=== PATIENT | female | born 2005 | race Two or more races ===

== ENCOUNTER 2024-05-18 00:32 | Emergency (ER) | payer SELFPAY ==
[2024-05-18 00:34] VITALS: BMI 23.6
--- NOTE | 2024-05-18 01:20 | PC.NURSE ---
no answer when called to be vitaled
[2024-05-18 01:41] VITALS: BP 131/81; PULSE 82; RESP 17; TEMP 37.1; O2SAT 98
[2024-05-18] MEDS: ACETAMINOPHEN 325 MG TABLET 650 MG PO (02:08)
[2024-05-18 02:41] LABS: Collection Type, Urine Clean Catch
[2024-05-18 03:34] LABS: Bilirubin,Urine Negative (Negative); Blood,Urine Negative (Negative); Clarity,Urine Clear (Clear/Hazy); Color,Urine Colorless (Lt Yel-Yel); Culture Indicated,Urine Not Indicated; Glucose, Urine Negative (Negative); Ketones,Urine Negative (Negative); Leukocyte Esterase,Urine Negative (Negative); Nitrite,Urine Negative (Negative); PH,Urine 7.5 (5.0-7.0); Protein,Urine Negative (Neg - Trace); RBC,Urine < 1 /hpf (0-3); Specific Gravity,Urine 1.008 (1.001-1.035); Squamous Epithelial Cell,Urine 2 /hpf (0-5); Urobilinogen,Urine Negative mg/dL (0.0-1.0); WBC,Urine < 1 /hpf (0-5)
[2024-05-18 03:37] LABS: HCG Qualitative,Urine Positive
--- NOTE | 2024-05-18 04:01 | EDNOTE_ITS ---
Upper Respiratory Inf. RME/HPI General Chief Complaint: Flu Like Symptoms Stated Complaint: HEADACHE, RUNNY NOSE Time Seen by Provider: 05/18/24 01:49 Arrival date/time: 05/18/24 00:32 RME / HPI RME / HPI Narrative: 19-year-old female who is currently 8 weeks A0 presents for evaluation of headache x 3 days. She endorses rhinorrhea and intermittent cough. Denies fever, chills, weakness. She notes intermittent dysuria. She denies vaginal bleeding, cramping, increased vaginal discharge. Patient is currently waiting to establish OB care. Related Data Allergies Allergy/AdvReac Type Severity Reaction Status Date / Time No Known Allergies Allergy Verified 05/18/24 00:33 Course Orders Category Date Time Status Bedside COVID-19 Antigen Test NOW Care 05/18/24 01:50 Active Bedside Influenza A&B Antigen Test NOW Care 05/18/24 01:50 Completed HCG Qualitative,Urine Stat Lab 05/18/24 02:10 Completed UA, C/S IF [Urinalysis, C/S if Indicated] Stat Lab 05/18/24 02:10 Completed Acetaminophen Tab [Tylenol Tab] Med 05/18/24 01:50 Discontinued 650 mg PO X1 ONE Vital Signs Vital signs: Vital Signs Temperature 98.8 F 05/18/24 01:41 Pulse Rate 82 05/18/24 01:41 Respiratory Rate 17 05/18/24 01:41 Blood Pressure 131/81 H 05/18/24 01:41 Pulse Oximetry (%) 98 05/18/24 01:41 Oxygen Delivery Method Room Air 05/18/24 01:41 Upper Respiratory Infection Medications / Prescriptions Medication administrations:: Medication Administration History Discontinued Medications Acetaminophen (Acetaminophen 325 Mg Tablet) 650 mg PO X1 ONE Stop: 05/18/24 01:51 Last Admin: 05/18/24 02:08 Dose: 650 mg Documented By: MANUEL Discharge Plan Prescriptions/Referrals Referrals: No Primary/Family,Physician [Primary Care Provider] - In 1 week Patient/Caregiver Discharge Instructions Print Language: Romansh
[2024-05-18 04:58] VITALS: BP 128/76; PULSE 80; RESP 18; TEMP 36.8; O2SAT 98
== END 2024-05-18 05:00 | disposition home or self-care (01) ==
PROVIDERS: Physician Assistant; Emergency Provider Emergency Medicine
DX: O99.511 Diseases of the respiratory system complicating pregnancy, first trimester (principal); J06.9 Acute upper respiratory infection, unspecified; Z3A.08 8 weeks gestation of pregnancy
CPT/HCPCS: 81001; 81025; 87400; 87811; 99283; A9270

== ENCOUNTER → 2024-06-04 | Outpatient (CLI) | payer SELFPAY ==
--- NOTE | 2024-06-04 15:30 | XR_ITS ---
Examination: Complete OB ultrasound, less than 14 weeks, transabdominal Date and time of exam: June 03, 2024 1549 hours INDICATIONS: Unknown size and dates, Technique: Obstetrical ultrasound images less than 14 weeks performed via transabdominal imaging Findings: A normal shaped single intrauterine gestation is present in the uterus. CRL 5.9 cm corresponds to 12 weeks 3 days gestational age Cardiac motion 160 bpm Ultrasonographic survey of visible and placental structures unremarkable. Amniotic fluid volume appears appropriate for this estimated gestational age. Right ovary 3.7 cm arterial flow. Left ovary 2.8 cm arterial flow IMPRESSION: Viable intrauterine gestation 12 weeks 3 days.
== END | disposition home or self-care (01) ==
PROVIDERS: Referring Provider Obstetrics & Gynecology; Visit Provider Obstetrics & Gynecology
DX: O09.92 Supervision of high risk pregnancy, unspecified, second trimester (principal); Z3A.12 12 weeks gestation of pregnancy
CPT/HCPCS: 76801

== ENCOUNTER → 2024-06-17 | Outpatient (CLI) | payer SELFPAY ==
--- NOTE | 2024-06-17 16:24 | XR_ITS ---
Examination: Complete OB ultrasound, less than 14 weeks, transabdominal Date and time of exam: June 17, 2024 1642 hrs. Indications: Onset decreased movement today Technique: Obstetrical ultrasound images less than 14 weeks performed via transabdominal imaging Findings: A normal shaped single intrauterine gestation is present in the uterus. CRL 8.5 cm corresponds to 14 weeks 3 days gestational age Cardiac motion 166 BPM Ultrasonographic survey of visible and placental structures unremarkable. Amniotic fluid volume appears appropriate for this estimated gestational age. Right ovary 3.9 cm arterial flow Left ovary obscured by bowel gas Impression: Viable intrauterine gestation 14 weeks 3 days.
== END | disposition home or self-care (01) ==
PROVIDERS: Referring Provider Obstetrics & Gynecology; Visit Provider Obstetrics & Gynecology
DX: O36.8120 Decreased fetal movements, second trimester, not applicable or unspecified (principal); Z3A.14 14 weeks gestation of pregnancy
CPT/HCPCS: 76801

== ENCOUNTER → 2024-08-19 | Outpatient (CLI) | payer MEDICAID, SELFPAY ==
--- NOTE | 2024-08-19 14:47 | XR_ITS ---
EXAMINATION: Ankle, left 3 views . Technique: Ankle AP, oblique, lateral 3 views Date and time of exam: 04/21/2024 1451 hours INDICATIONS: Ankle pain 2 weeks. FINDINGS: Lateral malleolar soft tissue swelling No fracture No foreign body IMPRESSION: No fracture or dislocation
== END | disposition home or self-care (01) ==
LOC: CDIM 14:39
PROVIDERS: PCP Physician Assistant; Referring Provider Physician Assistant; Visit Provider Physician Assistant
DX: M25.579 Pain in unspecified ankle and joints of unspecified foot (principal)
CPT/HCPCS: 73610

== ENCOUNTER 2024-12-04 00:54 | Inpatient (IN) | payer MEDICAID, SELFPAY ==
[2024-12-04] VITALS (189 sets, daily range): BP systolic 95–149; BP diastolic 58–95; PULSE 58–109; RESP 16–99; TEMP 36.8–37.2; O2SAT 83–100; BMI 30.4
[2024-12-04] MEDS: RINGERS LACTATED 1000 ML 1,000 ML 125 ML IV ×3 (03:47→07:57)
[2024-12-04] MEDS: Ampicillin Inj 2,000 MG in SODIUM CHLORIDE 0.9% (POP) 100 ML 200 MG IV (04:16)
[2024-12-04 04:38] LABS: Basophils # (Auto) 0.0 Thou/mm3 (0.0-0.2); Basophils % (Auto) 0 % (0-2.5); Eosinophils # (Auto) 0.1 Thou/mm3 (0.0-0.5); Eosinophils % (Auto) 1 % (0-10); Hematocrit 42.2 % (36.0-46.0); Hemoglobin 14.1 g/dL (12.0-16.0); Immature Granulocytes Auto 0.03 Thou/mm3 (0.00-0.00); Lymphocytes # (Auto) 2.1 Thou/mm3 (1.0-4.8); Lymphocytes % (Auto) 18 % (10-50); Mean Corpuscular HGB Conc 33.4 g/dl (31.0-37.0); Mean Corpuscular Hemoglobin 27.6 pg (25.0-35.0); Mean Corpuscular Volume 83 fL (80-100); Monocytes # (Auto) 0.7 Thou/mm3 (0.0-0.8); Monocytes % (Auto) 6 % (0-12); Neutrophils # (Auto) 8.6 Thou/mm3 (1.8-7.7); Neutrophils % (Auto) 74 % (37-80); Nucleated Red Blood Cell # 0.00 Thou/mm3 (0.00-0.00); Nucleated Red Blood Cell % 0 /100 WBC (0); Platelet Count 224 Thou/mm3 (140-440); RDW Standard Deviation 41.6 fL (36.4-46.3); Red Blood Count 5.10 Miln/mm3 (4.00-5.20); White Blood Count 11.5 Thou/mm3 (3.6-11.0)
[2024-12-04 05:04] LABS: Syphilis Nonreactive (Nonreactive)
[2024-12-04 06:45] LABS: Amphetamine/Metham Scrn,Ur OB Negative (Negative); Benzoylecgonine Screen, Ur OB Negative (Negative); Opiate Screen,Urine OB Negative (Negative); THC Screen,Urine OB Negative (Negative)
--- NOTE | 2024-12-04 06:47 | ESHP_ITS ---
Documentation for date of: 12/04/24 OB Labor/Induct. HPI History of Present Illness Chief complaint: Contractions : 1 Para: 0 Term pregnancies: 0 pregnancies: 0 Living children: 0 History of Abortions: Spontaneous and Elective: 0 History of Vaginal deliveries: 0 History of sections: No History of : No MARTHA: 12/13/24 Gestational Age (weeks): 38 Gestational Age (days): 5 History of present illness: Patient is a 19-year-old 1 para 0 at 38 weeks and 5 days that receives care with Dr. Whitmore at [facility] presented to labor and delivery triage at 1 AM with contractions that started around 11:30 PM. On initial presentation she was noted to be 3 cm dilated patient was ambulated for 2 hours and recheck was 5 cm with 100% effacement and -2 station patient is being admitted in early labor. All her records were reviewed. She is GBS positive, the rest of her labs were within normal limits. The office progress notes/flow sheet is not available for review at this time. History of Present Adequate Care: Yes (per pt report) Labs Labs: Positive: Rubella Titre and Group Beta Strep, Negative: RPR, Hepatitis B and HIV and Unknown: Chlamydia, Gonorrhea, Herpes Type 1 and Herpes Type 2 Review of Systems Review of Systems Systems Reviewed: All systems reviewed, normal except as documented Past Medical History Surgical History SURGICAL: Negative Section Meds Home Medications and Allergies Home Medications ?Medication ?Instructions ?Recorded ?Confirmed ?Type vits no.130-ferrous fum 1 tab PO QDAY 5 12/04/24 History 27 mg iron-folic acid 800 mcg tablet ( Vitamin) Allergies Allergy/AdvReac Type Severity Reaction Status Date / Time No Known Allergies Allergy Verified 12/04/24 01:07 OB Exam Physical Exam Vital signs: Temp Pulse Resp BP Pulse Ox 98.4 F 71 16 105/73 98 12/04/24 01:15 12/04/24 06:38 12/04/24 01:15 12/04/24 06:38 12/04/24 06:43 Constitutional Constitutional: no acute distress Routine HEENT Exam Head: Present normocephalic and atraumatic Eye: Present EOMI and PERRL ENT: Present mucous membranes moist Routine Neck Exam Neck: Present supple and trachea midline Routine Cardiovascular Exam Cardiovascular: Present RRR Routine Abdominal Exam Abdominal: Present soft and normoactive bowel sounds Detailed Labor and Delivery Exam Dilation (cm): 5 Effacement (%): 100 Cervix position: mid station: 0 Presentation: Vertex Baseline heart rate: 140 monitor accelerations: 15x15 monitor decelerations: None Contraction frequency (min): 5 Routine Extremities Exam Extremities: Present full ROM Routine Skin Exam Skin: Present intact, dry and warm Routine Neurological Exam Neurological: Present alert, oriented X3 and CN II-XII intact Routine Psychiatric Exam Psychiatric: Present normal affect and normal thought process OB Results Labs 12/04/24 04:13 Labs: Short CBC 12/04/24 Range/Units 04:13 WBC 11.5 H (3.6-11.0) Thou/mm3 Hgb 14.1 (12.0-16.0) g/dL Hct 42.2 (36.0-46.0) % Plt Count 224 (140-440) Thou/mm3 OB Assessment & Plan Assessment and Plan (1) Active labor at term: Status: Acute Assessment and plan: 19-year-old G1, P0 in active labor at 38 weeks and 5 days Admit to inpatient status IV access, LR at 125 cc/h Admission labs to include CBC type and screen RPR, gonorrhea and chlamydia since those were not found in her records GBS positive, initiate prophylaxis with ampicillin per protocol Continuous maternal monitoring Oxytocin ordered for augmentation as needed Epidural when desired Anticipate vaginal delivery
[2024-12-04] MEDS: Ampicillin Inj 1,000 MG in SODIUM CHLORIDE 0.9% (Popper) 50 ML 50 MG IV ×2 (07:56→12:04)
[2024-12-04 09:01] LABS: Chlamydia trachomatis PCR Negative (Not Detect); Neisseria Gonorrhoeae DNA PCR Negative (Not Detect); Trichomonas Negative (Negative)
--- NOTE | 2024-12-04 09:22 | PD.LDPN ---
Documentation for date of: 12/04/24 OB Labor Progress Note Pain Control Pain control: tolerating well and epidural Pelvic Exam Dilation (cm): 10 Effacement (%): 100 station: -1 Amniotic membrane status: Bulging Contractions Monitor mode: External Contraction frequency: 4-5 Contraction pattern: Coupling Contraction intensity: Moderate Status status: Category l Assessment and Plan Assessment: active labor
[2024-12-04] MEDS: OXYTOCIN in NS 30 units 30 UNIT/500 ML BAG IV (12:55)
[2024-12-04] MEDS: METHYLERGONOVINE INJ 0.2 MG/ML VIAL IM (14:09)
[2024-12-04] MEDS: OXYTOCIN in NS 20 units 20 UNIT/1,000 ML BAG 125 UNIT IV (14:35)
[2024-12-04] MEDS: TRANEXAMIC ACID 1,000 MG IVPB 1,000 MG/100 ML BAG 200 MG IV (14:49)
[2024-12-04] MEDS: ONDANSETRON INJ 2 MG/ML INJ 2 ML 4 MG IVP (15:19)
--- NOTE | 2024-12-04 16:30 | PD.LDDELS ---
Data ([place]inds) Data Hx Section: No Maternal Blood Type: O Pos Rubella Titre: Positive RPR: Non-reactive Labs: Positive: Group Beta Strep and Negative: RPR, Hepatitis B, HIV, Chlamydia and Gonorrhea : 1 Term: 0 : 0 Livin Abortions: Spontaneous & Theraputic: 0 Delivery Data (Hinds) Labor Data Initiation of labor: Spontaneous Induction/Augmentation Agent: Artificial ROM ROM date: 12/04/24 ROM time: 11:00 Amniotic membrane rupture type: Artificial Amniotic fluid description: Light Meconium Delivery Data EDC: 12/13/24 EDC calculated by:: LMP/early US confirmation Date of arrival to unit: 12/03/24 Onset of labor date: 12/03/24 Onset of labor time: 22:50 Complete dilation date: 12/04/24 Complete dilation time: 08:35 delivery date: 12/04/24 delivery time: 14:04 Gestational age (weeks): 38 Gestational age (days): 5 Placenta delivery date: 12/04/24 Placenta delivery time: 14:06 Stage 1 total time: Labor - Stage 1 Duration 9 hours and 45 minutes Delivered by: Diane [facility] ([facility]) Delivery nurse: joel Porter nurse: david bautista Dispute Coordinator at delivery: Yes Support person(s) at delivery: fob, grandmother Delivery Method Delivery method: Normal Vaginal Delivery Presentation: Vertex position: OA Anesthesia Type Anesthesia Type: Epidural Delivery Room Medications Delivery room medications: Methergine 0.2 mg IM, Pitocin 20 u IV, Cytotec 800 FL and other (TXA) Placenta Placenta delivery description: Spontaneous Cord blood sent to lab: Yes cord blood collection: Cord Blood Type Episiotomy Episiotomy description: None Lacerations #1: Perineal: 1st degree Perineal repair Sutures used for repair: 4.0 Chromic EBL Estimated blood loss (ml): 300 Umbilical Cord cord description: 3 Vessels and Nuchal Cord Additional Procedures Patient is a 19-year-old G1, P0 presented to labor and delivery in labor 5 cm dilated. She had epidural placed. She progressed to complete by about 830 5 in the morning. She labored down for a couple hours as she did not feel pressure, then her contractions spaced out. Pitocin was begun. She began pushing when she felt pressure at about 1315. She pushed approximately 40 minutes delivering a liveborn male at 1404. Findings: Liveborn male in the SY presentation with a loose nuchal cord x 1 and light meconium. Apgars were 7 and 9. Weight was 7 pounds 2 ounces. As there was meconium at delivery, delayed cord clamping was not performed and the baby was handed off to the waiting pediatric staff. The [employer] and Dr. Savage were present at delivery. The placenta was complete, spontaneous and grossly normal delivering approximately 4 minutes after the baby delivered. The patient had a small first-degree perineal laceration repaired in standard fashion using 4-0 chromic. After delivery, the patient continued to trickle blood. A manual exploration of the uterus was performed and a few clots removed. The patient continued to have continuous trickling and was given Methergine IM followed by Cytotec FL. Another exam was performed and a few clots removed. The patient was given TXA and vaginal packing was placed with some Surgicel. The plan was to monitor for any further bleeding. The patient's predelivery hemoglobin was 14.1. Complications Complications: None [place] Data ([facility]inds) [place] Data order: 1 [place]'s gender: Male Identification band number: [id number] weight (gms): 3230 g Weight (pounds): 7 lbs and 1.9 ozs length: 53.34 cm 1 minute: 7 5 minutes: 9
[2024-12-04] MEDS: DOCUSATE SOD 100 MG CAPSULE PO (21:15)
[2024-12-04 21:31] LABS: Basophils # (Auto) 0.0 Thou/mm3 (0.0-0.2); Basophils % (Auto) 0 % (0-2.5); Eosinophils # (Auto) 0.1 Thou/mm3 (0.0-0.5); Eosinophils % (Auto) 0 % (0-10); Hematocrit 34.3 % (36.0-46.0); Hemoglobin 11.7 g/dL (12.0-16.0); Immature Granulocytes Auto 0.06 Thou/mm3 (0.00-0.00); Lymphocytes # (Auto) 1.9 Thou/mm3 (1.0-4.8); Lymphocytes % (Auto) 13 % (10-50); Mean Corpuscular HGB Conc 34.1 g/dl (31.0-37.0); Mean Corpuscular Hemoglobin 28.3 pg (25.0-35.0); Mean Corpuscular Volume 83 fL (80-100); Monocytes # (Auto) 1.1 Thou/mm3 (0.0-0.8); Monocytes % (Auto) 7 % (0-12); Neutrophils # (Auto) 11.6 Thou/mm3 (1.8-7.7); Neutrophils % (Auto) 79 % (37-80); Nucleated Red Blood Cell # 0.00 Thou/mm3 (0.00-0.00); Nucleated Red Blood Cell % 0 /100 WBC (0); Platelet Count 184 Thou/mm3 (140-440); RDW Standard Deviation 42.0 fL (36.4-46.3); Red Blood Count 4.14 Miln/mm3 (4.00-5.20); White Blood Count 14.8 Thou/mm3 (3.6-11.0)
[2024-12-04] MEDS: IBUPROFEN TAB 400 MG TABLET 800 MG PO (23:51)
[2024-12-05 03:30] VITALS: BP 106/65; PULSE 75; RESP 16; TEMP 36.9; O2SAT 97
[2024-12-05 07:23] VITALS: BP 112/72; PULSE 78; RESP 20; TEMP 36.6; O2SAT 97
--- NOTE | 2024-12-05 08:10 | PD.LDPPPRG ---
Subjective Subjective Interval history: Delivery type: Patient doing well this morning. No acute complaints. Ambulating, tolerating p.o., and voiding without difficulty. HTN/Pre-E screen negative: No CP, SOB, DURAN, visual changes, RUQ pain. : [Yes] Lochia: diminishing Bowel: Flatus + / BM + UOP: [Adequate] Exam Vital Signs Temp Pulse Resp BP Pulse Ox O2 Del Method 97.8 F 78 20 112/72 97 Room Air 12/05/24 07:23 12/05/24 07:23 12/05/24 07:23 12/05/24 07:23 12/05/24 07:23 12/05/24 07:23 Constitutional Constitutional: no acute distress Routine HEENT Exam Head: Present normocephalic and atraumatic Eye: Present EOMI and PERRL ENT: Present mucous membranes moist Routine Neck Exam Neck: Present supple and trachea midline Routine Respiratory Exam Respiratory: Present chest non-tender, lungs clear, normal breath sounds and no resp distress Routine Cardiovascular Exam Cardiovascular: Present RRR Routine Abdominal Exam Abdominal: Present soft and normoactive bowel sounds Routine Extremities Exam Extremities: Present full ROM Routine Skin Exam Skin: Present intact, dry and warm Routine Neurological Exam Neurological: Present alert, oriented X3 and CN II-XII intact Routine Psychiatric Exam Psychiatric: Present normal affect and normal thought process Objective Labs 12/04/24 21:00 Labs: Laboratory Results - last 24 hr 12/04/24 12/04/24 03:30 21:00 WBC 14.8 H RBC 4.14 Hgb 11.7 L D Hct 34.3 L MCV 83 MCH 28.3 MCHC 34.1 RDW Std Deviation 42.0 Plt Count 184 D Neut % (Auto) 79 Lymph % (Auto) 13 [place] % (Auto) 7 Eos % (Auto) 0 Baso % (Auto) 0 Neut # (Auto) 11.6 H Lymph # (Auto) 1.9 [place] # (Auto) 1.1 H Eos # (Auto) 0.1 Baso # (Auto) 0.0 Immature Gran # (Auto) 0.06 H Absolute Nucleated RBC 0.00 Immature Gran % 0 Nucleated RBC % 0 Chlam trachomat DNA PCR Negative N.gonorrhoeae DNA (PCR) Negative Trichomonas DNA Probe Negative Assessment & Plan Problem List (1) Active labor at term: Status: Acute (2) Vaginal delivery: Status: Acute Assessment and plan: 1. Continue routine /post-op care 2. Labs reviewed, cbc appropriate 3. Remove dressing/Bernal 4. Encourage to ambulate, shower 5. Encourage PO intake, breast feeding Time Spent With Patient Time: Total time spent is greater than 50% in coordination of care (as documented) at patient's floor/unit and/or counseling patient:
--- NOTE | 2024-12-05 08:11 | PD.LDDS ---
DS: Providers Provider Date of admission: 12/04/24 02:41 Primary care physician: Physician No Primary/Family Admitting Provider: Babar Denton MD Attending Provider on Admission: Babar Denton MD Consults: 12/04/24 15:01 Referral Routine Comment: Attending Provider on DC: Babar Denton MD Discharging Provider: Babar Denton MD DS: Diagnosis Discharge Diagnosis (1) Vaginal delivery: Status: Acute (2) Active labor at term: Status: Acute Problem List Completed Was Problem List Reviewed/Reconciled?: Yes Summary/Hosp Course Brief History: Patient is a 19-year-old 1 para 0 at 38 weeks and 5 days that receives care with Dr. Whitmore at [facility] presented to labor and delivery triage at 1 AM with contractions that started around 11:30 PM. On initial presentation she was noted to be 3 cm dilated patient was ambulated for 2 hours and recheck was 5 cm with 100% effacement and -2 station patient is being admitted in early labor. All her records were reviewed. She is GBS positive, the rest of her labs were within normal limits. The office progress notes/flow sheet is not available for review at this time. Peripartum Data Delivery Method: Normal Vaginal Delivery Episiotomy Description: None Time Spent with Patient Time attestation: Total time spent providing and/or coordinating discharge services: Exam Vital Signs Temp Pulse Resp BP Pulse Ox O2 Del Method 97.8 F 78 20 112/72 97 Room Air 12/05/24 07:23 12/05/24 07:23 12/05/24 07:23 12/05/24 07:23 12/05/24 07:23 12/05/24 07:23 Discharge Plan Plan Patient Disposition: HOME (Self Care) Patient condition on transfer: Stable Prescriptions/Referrals Prescriptions/Med Rec: New docusate sodium [Stool Softener] 100 mg capsule 100 mg PO QDAY 30 Days Qty: 30 0RF ibuprofen 600 mg tablet 600 mg PO Q6H MDD 4 PRN (Reason: fever or pain) 10 Days Qty: 40 0RF Continued Vitamin 27 mg iron- 800 mcg tablet 1 tab PO QDAY Patient Comments: BUR[place]DI[place] TAKE 1 TABLET BY MOUTH ONCE DAILY Referrals: Babar Denton MD [Physician, ELEMENTARY LIBRARIAN] No Primary/Family,Physician [Primary Care Provider] Patient/Caregiver Discharge Instructions Meds to Beds: Yes Discharge Activity: activity as tolerated Education Materials: After a Vaginal , After Delivery [place] Concerns, Breast Care After , Incision Care After Vaginal , Nutrition While , Understanding Depression, : Caring for Yourself, Feel Healthy After Print Language: Maori Stand Alone Forms: Jolene Award Info., Patient Portal Info Letter Discharge Order Discharge Orders: Discharge (Routine); Ordered 12/05/24 Ordered By: Babar Denton Planned Discharge Date 12/05/24
[2024-12-05] MEDS: PRENATAL VITAMIN/FE FUM/FA TABLET 1 TAB PO (09:13)
[2024-12-05] MEDS: DOCUSATE SOD 100 MG CAPSULE PO (09:13)
[2024-12-05 11:41] VITALS: BP 112/72; PULSE 68; RESP 17; TEMP 36.9; O2SAT 97
[2024-12-05] MEDS: IBUPROFEN TAB 400 MG TABLET 800 MG PO (11:53)
== END 2024-12-05 15:05 | disposition home or self-care (01) | DRG 560 ==
LOC: S4SX 14:36 → S4NX 16:47
PROVIDERS: Obstetrics & Gynecology; Admitting Provider Obstetrics & Gynecology; Visit Provider Obstetrics & Gynecology
DX: O99.824 Streptococcus B carrier state complicating childbirth (principal); O69.81X0 Labor and delivery complicated by cord around neck, without compression, not applicable or unspecified; O70.0 First degree perineal laceration during delivery; O77.0 Labor and delivery complicated by meconium in amniotic fluid; O72.1 Other immediate postpartum hemorrhage; Z37.0 Single live birth; Z3A.38 38 weeks gestation of pregnancy
CPT/HCPCS: 36415; 59025; 80307; 85025; 86780; 86850; 86900; 86901; 87491; 87591; 87661; J0290; J2210; J2405; J2590; J2795; J3010; J3490; J7050; J7120; S0191; A9270